=== PATIENT | female | born 1970 | race Caucasian/White ===

== ENCOUNTER 2017-04-17 23:24 | Emergency (ER) | payer BC ==
[~2017-04-17] VITALS: Ht 170.2 cm; Wt 57.0 kg
[2017-04-17 23:28] VITALS: Ht 170.2 cm; Wt 57.0 kg
[2017-04-18] MEDS ORDERED: AMOX1TAB10 PO (00:22)
[2017-04-18] MEDS ORDERED: DIPHTH/TET/ACEL PERTUSS (ADULT) 0.5 ML VIAL IM* ONE (00:30)
--- NOTE | 2017-04-18 00:51 | ERD ---
ER Documentation Chief Complaint Date/Time DATE: 04/18/17 TIME: 00:44 Chief Complaint left thumb pain and swelling s/p bite by cat today HPI This is a 46 year old female presenting to ER after cat bite earlier today. Patient states she was bitten to left thumb earlier today by her own cat. Patient's cat is on antibiotics for a gum infection and while patient was trying to give the medication, the cat bit her. Patient now has pain and redness to puncture wound. No loss of sensation. No numbness or tingling. Patient states pain feels like stiffness. No fevers or chills. Patient unsure of her last tetanus shot. ROS All systems reviewed and are negative except as per history of present illness. Medications Home Meds Active Scripts Amoxicillin/Potassium Clav (Amox-Clav 875-125 mg Tablet) 875-125 mg Tab, 1 TAB PO BID for 10 Days, #20 TAB Prov:BLANKA RODRIGUES NP 04/18/17 Allergies Allergies: Coded Allergies: Sulfa (Sulfonamide Antibiotics) (Verified Allergy, Unknown, 04/17/17) PMhx/Soc Medical and Surgical Hx: pt denies Medical Hx, pt denies Surgical Hx Hx Alcohol Use: No Hx Substance Use: No Hx Tobacco Use: No Smoking Status: Never smoker Physical Exam Vitals Vital Signs Date Time Temp Pulse Resp B/P Pulse Ox O2 Delivery O2 Flow Rate FiO2 04/17/17 23:28 99.4 121 18 159/83 100 Physical Exam Const: No acute distress, alert Head: Atraumatic Eyes: Normal Conjunctiva Skin: small puncture wound to interdigit webbing between first and second digit on left hand. Capillary refill less than 3 seconds. Sensation fully intact. Parts Control Clerk strength equal to bilateral hands. Back: No midline or flank tenderness Ext: No cyanosis, or edema Neur: Awake and alert Psych: Normal Mood and Affect Results 24 hrs Current Medications Medications (Trade) Dose Ordered Sig/Aquiles Route PRN Reason Start Time Stop Time Status Last Admin Dose Admin Diphtheria/ Tetanus/Acell Pertussis (Adacel) 0.5 ml ONCE ONCE IM* 04/18/17 00:30 04/18/17 00:31 DC 04/18/17 00:26 Procedures/MDM This is a 46-year-old female presenting to the emergency department after cat bite earlier today. Patient was bitten by her own cat while trying to give Medication. There is a small puncture wound to interdigit webbing between first and second digit on left hand. There is surrounding erythema. No induration, warmth, drainage or laceration. Patient's tetanus is out of date. Patient given Tdap while in the ED. Patient is non toxic appearing. Non hypoxic. Patient is alert and oriented. Low suspicion for deep space infection or abscess. Patient is appropriate for outpatient management and will be given prescription for Augmentin 875 mg twice daily 10 days. Instructed patient to return to ED in 2 days for wound check. Return to ED for any high fever, chest pain, difficulty breathing, shortness breath, wheezing, vomiting, diarrhea, abdominal pain or any new or worsening symptoms. Patient verbalizes understanding. All questions answered at discharge. Disclaimer: Inadvertent spelling and grammatical errors are likely due to EHR/ dictation software use and do not reflect on the overall quality of patient care. Also, please note that the electronic time recorded on this note does not necessarily reflect the actual time of the patient encounter. Departure Diagnosis: Primary Impression: Cat bite Encounter type: initial encounter Qualified Code: W55.01XA - Cat bite, initial encounter Additional Impression: Cellulitis Site of cellulitis: extremity Site of cellulitis of extremity: finger Laterality: left Qualified Code: L03.012 - Cellulitis of finger of left hand Condition: Stable Patient Instructions: Cat Bite Referrals: [facility] YOU HAVE RECEIVED A MEDICAL SCREENING EXAM AND THE RESULTS INDICATE THAT YOU DO NOT HAVE A CONDITION THAT REQUIRES URGENT TREATMENT IN THE EMERGENCY DEPARTMENT. FURTHER EVALUATION AND TREATMENT OF YOUR CONDITION CAN WAIT UNTIL YOU ARE SEEN IN YOUR DOCTORS OFFICE WITHIN THE NEXT 1-2 DAYS. IT IS YOUR RESPONSIBILITY TO MAKE AN APPOINTMENT FOR FOLOW-UP CARE. IF YOU HAVE A PRIMARY DOCTOR --you should call your primary doctor and schedule an appointment IF YOU DO NOT HAVE A PRIMARY DOCTOR YOU CAN CALL OUR PHYSICIAN REFERRAL HOTLINE AT IF YOU CAN NOT AFFORD TO SEE A PHYSICIAN YOU CAN CHOSE FROM THE FOLLOWING [facility] CLINICS [facility] [address] [place] [facility] [address] [facility]. [facility] [address] [facility] [address] [facility] [address] [facility]. [facility] [address] [facility]. [facility] YOU HAVE RECEIVED A MEDICAL SCREENING EXAM AND THE RESULTS INDICATE THAT YOU DO NOT HAVE A CONDITION THAT REQUIRES URGENT TREATMENT IN THE EMERGENCY DEPARTMENT. FURTHER EVALUATION AND TREATMENT OF YOUR CONDITION CAN WAIT UNTIL YOU ARE SEEN IN YOUR DOCTORS OFFICE WITHIN THE NEXT 1-2 DAYS. IT IS YOUR RESPONSIBILITY TO MAKE AN APPOINTMENT FOR FOLOW-UP CARE. IF YOU HAVE A PRIMARY DOCTOR --you should call your primary doctor and schedule and appointment IF YOU DO NOT HAVE A PRIMARY DOCTOR YOU CAN CALL OUR PHYSICIAN REFERRAL HOTLINE AT . IF YOU CAN NOT AFFORD TO SEE A PHYSICIAN YOU CAN CHOSE FROM THE FOLLOWING [facility] INSTITUTIONS: [facility] [address] [place] [address] [facility] [address] [place] [address] [facility] + [facility] [address] [place] [address] Additional Instructions: Follow up in 2 days here for wound check. Return to ED for any high fever, chest pain, difficulty breathing, shortness breath, wheezing, vomiting, diarrhea, abdominal pain or any new or worsening symptoms. BLANKA RODRIGUES NP Apr 18, 2017 00:51
== END 2017-04-18 00:33 | disposition home or self-care (01) ==
LOC: FTE 23:24
DX: S61.052A Open bite of left thumb without damage to nail, initial encounter (principal); L03.012 Cellulitis of left finger; W55.01XA Bitten by cat, initial encounter; Y92.9 Unspecified place or not applicable; Z23 Encounter for immunization
CPT/HCPCS: 90471; 90715